=== PATIENT | male | born 1985 | race American Indian/Alaskan Native ===

== ENCOUNTER 2017-01-27 18:07 | Emergency (ER) | payer SELFPAY ==
[2017-01-27 18:22] VITALS: BP 117/84
[2017-01-27] MEDS ORDERED: BOOSTRIX IM ONE (20:49)
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
[2017-01-27] MEDS ORDERED: XYLOCAINE 1% 20 mL INFILTRATI ONE (20:54)
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
== END 2017-01-27 22:55 | disposition home or self-care (01) ==
LOC: ED 18:07
DX: S61.212A Laceration without foreign body of right middle finger without damage to nail, initial encounter (principal); F17.200 Nicotine dependence, unspecified, uncomplicated; W26.0XXA Contact with knife, initial encounter; Y93.89 Activity, other specified; Y99.8 Other external cause status; Y92.89 Other specified places as the place of occurrence of the external cause
CPT/HCPCS: 90471; 90715